=== PATIENT | female | born 1955 | race Caucasian/White ===

== ENCOUNTER → 2018-12-12 | Outpatient (CLI) | payer MEDICARE, OTHER ==
[~2018-12-12] MED LIST: ATOR10 PO; CALTRATE 600 +1 EACH PO; CALTRATE PO; Estring1 EACH VG; FISH1000 PO; Lisinopril2.5 MG; MECL25 PO; MULVITA PO; TRETINOIN TP
== END | disposition home or self-care (01) ==
LOC: LAB 11:21 → LAB SHORT 11:21
DX: R30.0 Dysuria (principal)
CPT/HCPCS: 87077; 87086; 87186

== ENCOUNTER 2019-06-25 22:49 | Inpatient (IN) | payer MEDICARE, OTHER ==
[~2019-06-25] VITALS: Ht 167.6 cm; Wt 88.4 kg
[2019-06-25 23:00] LABS: Calcium, Ionized (POC) 1.22 mmol/L (1.10-1.46); Chloride (POC) 103 mmol/L (98-108); Creatinine (POC) 1.1 mg/dL (0.6-1.0); Glucose (ISTAT POC) 226 mg/dL (70-99); Hemoglobin (POC) 12.6 g/dL (12.0-16.0); Potassium (POC) 2.9 mmol/L (3.5-5.5); Sodium (POC) 141 mmol/L (135-148); Total CO2 (POC) 22 mmol/L (21-32)
[2019-06-25 23:20] LABS: BASOPHILS ABSOLUTE AUTO 0.04 K/mm3 (0.00-0.23); BASOPHILS PERCENT AUTO 1 % (0-2); EOSINOPHILS PERCENT AUTO 4 % (0-6); Hematocrit 38.6 % (33.0-51.0); Hemoglobin 12.1 g/dL (11.5-16.0); IMMATURE GRAN ABSOLUTE AUTO 0.09 K/mm3 (0.00-0.10); IMMATURE GRAN PERCENT AUTO 1 % (0-1); LYMPHOCYTES PERCENT AUTO 61 % (21-46); MONOCYTES PERCENT AUTO 6 % (4-13); Mean Corpuscular HGB 29.6 pg (26.0-34.0); Mean Corpuscular HGB Conc 31.3 g/dL (31.5-36.5); Mean Corpuscular Volume 94 fL (80-100); Mean Platelet Volume 10.6 fL (9.1-12.4); NEUTROPHILS PERCENT AUTO 28 % (41-73); Platelet Count 223 K/mm3 (150-400); RDW Coefficient Variation 12.6 % (11.7-14.2); RDW Standard Deviation 43.2 fL (35.1-46.3); Red Blood Cell Count 4.09 M/mm3 (3.80-5.20); White Blood Cell Count 8.53 K/mm3 (4.00-11.30)
[2019-06-25] MEDS ORDERED: Ventolin/Prove6.7 GM INH (23:22)
[2019-06-25 23:24] LABS: Hematocrit 38.7 % (33.0-51.0); Hemoglobin 12.1 g/dL (11.5-16.0); Mean Corpuscular HGB 29.4 pg (26.0-34.0); Mean Corpuscular HGB Conc 31.3 g/dL (31.5-36.5); Mean Corpuscular Volume 94 fL (80-100); Mean Platelet Volume 10.7 fL (9.1-12.4); Platelet Count 229 K/mm3 (150-400); RDW Coefficient Variation 12.6 % (11.7-14.2); RDW Standard Deviation 43.4 fL (35.1-46.3); Red Blood Cell Count 4.11 M/mm3 (3.80-5.20); White Blood Cell Count 8.62 K/mm3 (4.00-11.30)
[2019-06-25 23:38] LABS: Anion Gap 13 mmol/L (6-16); Blood Urea Nitrogen 24 mg/dL (8-24); Bun/Creatinine Ratio 24.2 (12.0-20.0); CO2, Blood 21 mmol/L (21-32); Calcium, Blood 8.2 mg/dL (8.5-10.1); Chloride, Blood 107 mmol/L (98-108); Creatinine, Blood 0.99 mg/dL (0.40-1.00); Glomerular Filtration Rate 60 (60-); Glucose, Blood 212 mg/dL (70-99); Sodium, Blood 141 mmol/L (136-145); Troponin I <0.015 ng/mL (0.000-0.040)
[2019-06-25 23:44] LABS: Alanine Aminotransfer (ALT/SGP 157 U/L (12-78); Albumin/Globulin Ratio 0.8 (0.8-1.8); Alk Phos 150 U/L (50-136); Anion Gap 14 mmol/L (6-16); Aspartate Aminotrans (AST/SGOT 171 U/L (12-37); Bilirubin, Total 0.4 mg/dL (0.1-1.0); Blood Urea Nitrogen 23 mg/dL (8-24); Bun/Creatinine Ratio 22.8 (12.0-20.0); CHOL/HDL RATIO 3.7; CO2, Blood 20 mmol/L (21-32); Calcium, Blood 8.4 mg/dL (8.5-10.1); Chloride, Blood 107 mmol/L (98-108); Cholesterol 201 mg/dL (50-200); Creatinine, Blood 1.01 mg/dL (0.40-1.00); Globulin, Blood 3.6 g/dL (2.2-4.0); Glomerular Filtration Rate 58 (60-); Glucose, Blood 212 mg/dL (70-99); HDL Cholesterol 55 mg/dL (>39); LDL/HDL RATIO 2.2; Low Density Lipoprotein Chol 119 mg/dL (0-110); Sodium, Blood 141 mmol/L (136-145); Total Protein, Blood 6.6 g/dL (6.4-8.2); Triglycerides 136 mg/dL (30-160); Very Low Density Lipoprot Chol 27 mg/dL (6-32)
--- NOTE | 2019-06-26 01:20 | NUR ---
PT TO ICU 4 FROM TECHNICAL REP AT 0110. PT INTUBATED WITH VENT SETTINGS AC 16/450/5/45%. ETT 7.5, 23 AT TEETH. PT STARTED ON PROPOFOL 35 MCG/KG/MIN. BAG 1 OF 2 OF KCL INFUSING AND NS @ 200 ML/HR. PT OPENS EYES AND TURNS EYES TOWARD SOUND, FAILS TO FOLLOW COMMANDS. TYLER. PT PLACED IN RESTRAINTS TO PREVENT ACCIDENTAL SELF-EXTUBATION. TR BAND PLACED AT 0058 ON RIGHT RADIAL. 12 CC AIR. SMALL AMOUNT OF BLOOD NOTED. DISTAL PULSES/PALLOR WNL. CAP REFILL<3 SECONDS. PT ARRIVED HYPERTHERMIC WITH CORE TEMP OF 93.2, PT COVERED IN WARM BLANKETS. WILL CONTINUE TO MONITOR AND USE KAREN HUGGER NEEDED. TEMP STRAUSS PATENT AND DRAINING CLEAR YELLOW URINE. SEE FULL ADMISSION ASSESSMENT.
[2019-06-26 02:16] LABS: BASOPHILS ABSOLUTE AUTO 0.06 K/mm3 (0.00-0.23); BASOPHILS PERCENT AUTO 0 % (0-2); EOSINOPHILS ABSOLUTE AUTO 0.17 K/mm3 (0.00-0.68); EOSINOPHILS PERCENT AUTO 1 % (0-6); Hematocrit 39.4 % (33.0-51.0); Hemoglobin 12.4 g/dL (11.5-16.0); IMMATURE GRAN PERCENT AUTO 1 % (0-1); LYMPHOCYTES ABSOLUTE AUTO 2.31 K/mm3 (0.84-5.20); LYMPHOCYTES PERCENT AUTO 12 % (21-46); MONOCYTES PERCENT AUTO 5 % (4-13); Mean Corpuscular HGB 29.5 pg (26.0-34.0); Mean Corpuscular HGB Conc 31.5 g/dL (31.5-36.5); Mean Corpuscular Volume 94 fL (80-100); Mean Platelet Volume 10.5 fL (9.1-12.4); NEUTROPHILS ABSOLUTE AUTO 15.44 K/mm3 (1.96-9.15); NEUTROPHILS PERCENT AUTO 81 % (41-73); Platelet Count 224 K/mm3 (150-400); RDW Coefficient Variation 12.7 % (11.7-14.2); RDW Standard Deviation 43.8 fL (35.1-46.3); Red Blood Cell Count 4.21 M/mm3 (3.80-5.20); White Blood Cell Count 19.08 K/mm3 (4.00-11.30)
[2019-06-26 02:17] LABS: Bun/Creatinine Ratio 20.4 (12.0-20.0); Creatinine, Blood 1.03 mg/dL (0.40-1.00); Magnesium, Blood 1.7 mg/dL (1.6-2.4); Potassium, Blood 2.9 mmol/L (3.5-5.5); Troponin I 0.075 ng/mL (0.000-0.040)
[2019-06-26 02:19] LABS: PCO2 Arterial 38.9 mmHg (35-45); PO2 Arterial 84.1 mmHg (80-100); pH Blood Arterial 7.34 (7.35-7.45)
--- NOTE | 2019-06-26 02:45 | NUR ---
MANUAL PRESSURE HELD ON PT'S RIGHT RADIAL D/T REBLEED FROM RELEASING 2CC AIR FROM TR BAND. 2 CC AIR REINTRODUCED, ARMBOARD CHANGED. CAP REFILL, DISTAL PULSES/PALLOR WNL. WILL CONTINUE TO MONITOR. PHONE CALL FROM DR. ALEXANDER REGARDING PT'S LABS. ORDER FOR 2 GRAMS MAG REPLACEMENT WITH RECHECK OF MAG LEVELS 1 HOUR FOLLOWING IV INFUSION. CHECK K+ 1 HOUR FOLLOWING 40 MEQ KCL IV INFUSION. PER DR. ALEXANDER GOAL OF MAINTAINING K+ OF 4 AND MG OF 2.
--- NOTE | 2019-06-26 04:00 | NUR ---
PT HAVING SEIZURE WITH DECEREBRATE POSTURING. DR. ALEXANDER NOTIFIED. ORDER FOR 2 MG ATIVAN. PT STACKING BREATHS, ORDER TO TRY PS. VENT SETTINGS CHANGED TO PS 7, PEEP 5, FIO2 30%.
--- NOTE | 2019-06-26 05:00 | NUR ---
PT CONTINUES TO HAVE SEIZURE ACTIVITY. ORDER FOR STAT CT, PATRICIA GTT, VERSED GTT. ATIVAN 1-3 MG Q1 HR PRN.
--- NOTE | 2019-06-26 05:37 | NUR ---
PT TRANSPORTED TO CT. DURING CT PT VOMITED COPIOUS AMOUNTS OF GREEN WATERY BILE. PT HAD [address]
--- NOTE | 2019-06-26 06:07 | NUR ---
CALL TO DR. ALEXANDER. PT'S MORNING K+ 3.4. ORDER FOR 60 MEQ KCL. PT CONTINUES TO HAVE REGULAR SEIZURE ACTIVITY DESPITE ATIVAN, PROPOFOL, AND VERSED. PER DR. ALEXANDER INCREASE VERSED GTT NEEDED TO DECREASE SEIZURE ACTIVITY. VERSED INCREASED TO 6 MG/HR.
--- NOTE | 2019-06-26 06:48 | NUR ---
SHIFT SUMMARY PT REMAINS ON PS 7, PEEP 5, FIO2 30%. PROPOFOL GTT 45 MCG/KG/MIN, VERSED GTT 8 MG/HR, NS @ 200 ML/HR. PT CONTINUES TO HAVE SEIZURE ACTIVITY WITH INCREASE IN LACTIC ACID THIS AM. DR. ALEXANDER ORDERED ADDITIONAL KEPPRA GTT. EEG TO BE DONE THIS AM. 6 CC AIR REMAINS IN TR BAND. NO NEW OR WORSENING BLEED. SITE SOFT, NO SIGN OF HEMATOMA, CAP REFILL< 3 SECONDS, DISTAL PULSES/PALLOR WNL. PLEASE SEE PREVIOUS NOTES FROM THIS SHIFT. WILL REPORT TO DAYSHIFT NURSE
--- NOTE | 2019-06-26 08:00 | NUR ---
ASSUMPTION OF CARE ASSUMED CARE OF PT AT 0700. PT INTUBATED AND SEDATED, VENT SET TO PS 7/5, RR 25-26, 02 SATURATIONS 98%. MONITOR SHOWS SINUS TACH AT 105, BP STABLE. NO PLANTAR REFLEXES AT THIS TIME, SLIGHT DORSAL FLEXION IN ALL TOES. PROPOFL GOING AT 45 AND MIDAZOLAM AT 8, NOTICABLE SHAKING POSSIBLE SEIZURE LIKE ACTIVITY, MIDAZOLAM INCREASED TO 10. TEMPERATURE AT BEGINNING OF SHIFT 100.2, BLANKET REMOVED FROM PT, TEMPERATURE SLOWLY INCREASED TO CURRENT TEMP OF 100.8, SLIPPERS REMOVED. BEDSIDE ECHO COMPLETE.
[2019-06-26 08:41] LABS: Bicarbonate Venous 19.5 mmol/L (24.0-30.0); PCO2 Venous 46.2 mmHg (38-42); PO2 Venous 65.3 mmHg (38-42)
[2019-06-26 08:42] LABS: pH Blood Venous 7.27 (7.34-7.37)
--- NOTE | 2019-06-26 09:00 | NUR ---
DR WEINSTEIN TO ROOM, UPDATED ON PTS STATUS. EEG ORDERED, NS DC'D AND FAMILY UPDATED ON PLAN. FLUIDS PLACED ON TKO WITH POTASSIUM INFUSION AT THIS TIME.
[2019-06-26 09:34] LABS: International Normalized Ratio 1.08; Prothrombin Time Results 11.4 Sec (9.7-11.5)
--- NOTE | 2019-06-26 10:00 | NUR ---
AT BEDSIDE WHEN BP DECREASED. FIRST LOW READING AT 82/52 WITH SUBSEQUENT READING OF 78/51. DR WEINSTEIN UPDATED, 1L NS BOULUS ORDERED. PRESSORS TO BE CONSIDERED IF HYPOTENSION CONTINUES. PICC LINE RECOMMENDED AT THIS TIME. WILL DISCUSS WITH FAMILY FOR PICC LINE CONSENT.
--- NOTE | 2019-06-26 10:30 | NUR ---
PER MORNING REPORT FROM NIGHT, TR BAND TO R RADIAL WITH 6CC OF AIR REMAINING. 0830 PTT DECREASED FROM CRITICAL LEVEL, TR BAND DEFLATED AND REMOVED AT THIS TIME, OPSITE PLACED OVER INSERTION SITE. NO BLEEDING AT INSERTION SITE, SOME BRUISING NOTED. WRIST IMMOBILIZER IN PLACE.
--- NOTE | 2019-06-26 10:40 | NUR ---
PICC LINE DISCUSSION: THIS RN DISCUSSED THE NEED FOR A PICC LINE TO BE PLACE FOR POTENTIAL NEED FOR VASOPRESSORS AND IV INCOMPATIBILITIES. DISCUSSED WITH REYNA (), AND PT'S TWO DAUGHTERS. REYNA DECLINED FOR IT TO BE PLACED AT THIS TIME AND PT'S DAUGHTERS REPORT THEY WOULD "LIKE TO DISCUSS IT." AWAITING FINAL DECISION.
--- NOTE | 2019-06-26 12:00 | NUR ---
DR SALDAÑA TO PTS ROOM. UPDATED ON PTS STATUS, PT TO START ASPIRIN TODAY.
--- NOTE | 2019-06-26 15:36 | NUR ---
EEG TO ROOM AT 1400. DISCUSSED VERSED AND PROPOFOL GTT WITH JONATHAN AND DR WEINSTEIN. MEDICATIONS TO BE PLACED ON SB FOR TEST. VERSED PLACED ON SB AT 1430.
--- NOTE | 2019-06-26 16:08 | NUR ---
Provided calm presence and prayer to Phyllis's , Shanti, and their dtr. Shanti told me the story of what happened last night.I complimented him on his fast instincts and tremendous love. I listened to life review and provided prayer at bedside. Pt and spouse are deeply Christianity. Very appreciaitve of prayer and visits. Father Curtis will see pt and family tomorrow. I will remain available.
--- NOTE | 2019-06-26 17:57 | NUR ---
EEG COMPLETE AT 1700, PROPOFOL RESTARTED DURING PROCEDURE DUE TO SHAKING/SHIVERING MOVEMENTS, WARM BLANKETS PROVIDED. ATTEMPTED TO AROUSE PT PRIOR TO STARTING PROPOFOL, NO RESPONSE, PROPOFOL ON SB FOR A TOTAL OF 45 MINUTES. NO NOTICABLE SEIZURE ACTIVITY WHILE PROPOFOL AND VERSED ON SB, UPDATE DR WEINSTEIN, VERSED TO REMAIN ON SB UNTIL EEG RESULTS.
--- NOTE | 2019-06-26 18:30 | NUR ---
WASTED VERSED GTT (APPROX 240ml) IN Rx DESTROYER WITH DORIS SHINE RN.
--- NOTE | 2019-06-26 18:44 | NUR ---
SHIFT SUMMARY PT REMAINS INTUBATED, SEDATION PLACED ON SB, PT UNRESPONSIVE AT THIS TIME. VENT SET TO PS 7/5 FiO2 25%, 02 SATURATIONS STABLE T/O SHIFT ABOVE 95%. MONITOR SHOWS NSR WITH RATES 80'S-90'S. ECHO COMPLETED THIS AM. SHORT PERIOD OF HYPOTENSION EARLY IN SHIFT (SEE NURSING NOTE), PICC LINE PLACED, BP REMAINED STABLE FOR REMAINDER OF SHIFT. PTT DECREASED THIS SHIFT AND HEPARIN GTT STARTED AT 13u. EEG COMPLETE THIS SHIFT, REPORT FROM DR POON TO DR WEINSTEIN THAT EEG WAS NEGATIVE FOR SEIZURE ACTIVITY. DR WEINSTEIN ORDERED VERSED DC'D, PROPOFOL PLACED ON SB TO ASSESS NEURO ACTIVITY, MAY BE RESTARTED IF PT APPEARS UNCOMFORTABLE OR IS NOT TOLERATING THE VENT WELL, NURSE BHARGAVFITY ORDER PLACED. CRITICAL TROPONIN LAB @ 1827 OF 16.6, CALL PLACED TO DR MACEDO, NO CHANGE IN RHYTHM- PT REMAINS NSR AT 80-90BPM, BP STABLE WITH SYSTOLIC 110-120'S, ORDERS TO TREND TROPONINS Q8H X3 AND TO ADD ON CKMB AND TREND Q8H X3.
[2019-06-26 19:15] LABS: Creatine Kinase MB 100.3 ng/mL (0.0-3.6)
[2019-06-26 19:30] LABS: Creatine Kinase MB Index 6.6 (0.0-4.0)
[2019-06-26 21:28] LABS: Base Excess Venous -2.2 mmol/L; Bicarbonate Venous 22.7 mmol/L (24.0-30.0); PCO2 Venous 34.7 mmHg (38-42); pH Blood Venous 7.42 (7.34-7.37)
--- NOTE | 2019-06-26 21:29 | NUR ---
ASSUMED CARE OF PT, REPORT RCV'D FROM ISAC PATE. PT REMAINS INTUBATED PS 7, PEEP 5, FIO2 25%. SEDATION REMAINS ON STANDBY. PT HAS FACIAL GRIMACING WITH STERNAL RUN BUT FAILS TO FOLLOW COMMANDS OR OPEN HER EYES. PT TOLERATING VENT SETTINGS. PER PT'S FAMILY, D/T PT'S DECREASED RENAL FUNCTION PT HAS DIFFICULTY CLEARING SEDATION AND OTHER MEDICATIONS FROM HER BODY. PT'S FAMILY REPORTS THAT FOLLOWING PT'S HIP REPLACEMENT PT REQUIRED 5 ADDITIONAL DAYS HOSPITALIZED TO CLEAR SEDATION AND RETURN TO BASELINE. NO SEIZURE LIKE ACTIVITY NOTED. VHP @ 25 ML/HR, GOAL RATE 40 ML/HR WITH Q4 30 ML H20 FLUSH. NO RESIDUALS NOTED AT THIS TIME. TEMP STRAUSS PATENT AND DRAINING CLEAR YELLOW URINE. RIGHT RADIAL SITE SOFT, NO HEMATOMA NOTICED, SCANT AMOUNT OF BLOOD UNDER CLEAR DRESSING, NO EVIDENCE OF NEW OR WORSENING BLEED, DISTAL PULSES/PALLOR WNL, CAP REFILL<3 SECONDS. ARMBOARD REMAINS IN PLACE. SEE FULL SHIFT ASSESSMENT.
--- NOTE | 2019-06-27 00:31 | NUR ---
MIDSHIFT SUMMARY PT CONTINUES TO TOLERATE PS VENT SETTING. REMAINS OFF OF SEDATION AND APPEARS TO BE BECOMING MORE ALERT. PT MOVING HEAD BACK AND FORTH, MOVING ALL EXTREMETIES, AND ATTEMPTING TO OPEN EYES. PT STILL FAILS TO FOLLOW COMMANDS BUT APPEARED TO ON 2 OCCASIONS NOD HER HEAD "YES". PT FEBRILE WITH TMAX 101.1. COVERS REMOVED AND FAN BLOWING ON PT. HEPARIN GTT REMAINS AT 13 UNITS/HR. WILL CONTINUE TO MONITOR.
[2019-06-27 02:31] LABS: Creatine Kinase MB 79.9 ng/mL (0.0-3.6)
[2019-06-27 02:44] LABS: Creatine Kinase MB Index 4.1 (0.0-4.0)
[2019-06-27 03:13] LABS: BASOPHILS ABSOLUTE AUTO 0.05 K/mm3 (0.00-0.23); BASOPHILS PERCENT AUTO 0 % (0-2); EOSINOPHILS ABSOLUTE AUTO 0.13 K/mm3 (0.00-0.68); EOSINOPHILS PERCENT AUTO 1 % (0-6); Hematocrit 31.1 % (33.0-51.0); Hemoglobin 10.1 g/dL (11.5-16.0); IMMATURE GRAN ABSOLUTE AUTO 0.09 K/mm3 (0.00-0.10); IMMATURE GRAN PERCENT AUTO 1 % (0-1); LYMPHOCYTES ABSOLUTE AUTO 0.94 K/mm3 (0.84-5.20); LYMPHOCYTES PERCENT AUTO 5 % (21-46); MONOCYTES ABSOLUTE AUTO 1.14 K/mm3 (0.16-1.47); MONOCYTES PERCENT AUTO 6 % (4-13); Mean Corpuscular HGB 29.4 pg (26.0-34.0); Mean Corpuscular HGB Conc 32.5 g/dL (31.5-36.5); Mean Platelet Volume 10.3 fL (9.1-12.4); NEUTROPHILS ABSOLUTE AUTO 15.63 K/mm3 (1.96-9.15); NEUTROPHILS PERCENT AUTO 87 % (41-73); Platelet Count 160 K/mm3 (150-400); RDW Coefficient Variation 13.5 % (11.7-14.2); RDW Standard Deviation 44.8 fL (35.1-46.3); Red Blood Cell Count 3.44 M/mm3 (3.80-5.20); White Blood Cell Count 17.98 K/mm3 (4.00-11.30)
[2019-06-27 03:14] LABS: Mean Corpuscular Volume 90 fL (80-100)
[2019-06-27 03:35] LABS: Alanine Aminotransfer (ALT/SGP 116 U/L (12-78); Albumin, Blood 2.6 g/dL (3.4-5.0); Albumin/Globulin Ratio 0.8 (0.8-1.8); Alk Phos 97 U/L (50-136); Anion Gap 5 mmol/L (6-16); Aspartate Aminotrans (AST/SGOT 170 U/L (12-37); Bilirubin, Total 0.9 mg/dL (0.1-1.0); Blood Urea Nitrogen 15 mg/dL (8-24); Bun/Creatinine Ratio 15.9 (12.0-20.0); CO2, Blood 23 mmol/L (21-32); Chloride, Blood 113 mmol/L (98-108); Creatinine, Blood 0.94 mg/dL (0.40-1.00); Globulin, Blood 3.4 g/dL (2.2-4.0); Glomerular Filtration Rate >60 (60-); Glucose, Blood 108 mg/dL (70-99); Magnesium, Blood 2.2 mg/dL (1.6-2.4); Phosphorus, Blood 2.3 mg/dL (2.5-4.9); Potassium, Blood 3.9 mmol/L (3.5-5.5); Sodium, Blood 141 mmol/L (136-145)
--- NOTE | 2019-06-27 06:14 | NUR ---
SHIFT SUMMARY PT REMAINS ON PS 7, PEEP 5, FIO2 25%. PT TOLERATED PS T/O NIGHT WITHOUT REQUIRING SEDATION. PT MEDICATED TWICE WITH 25 MCG FENTANYL D/T INCREASED RESTLESSNESS WITH GOOD RESPONSE. PT OPENING EYES TO VERBAL STIMULI, NODDING HEAD YES/NO IN RESPONSE TO QUESTIONS AND WAS ABLE TO SQUEEZE HAND WHEN ASKED. PT HAS CRACKLES BILATERAL BASES WITH MODERATE AMOUNT OF THICK YELLOW SPUTUM SUCTIONED. PT FEBRILE WITH TMAX 101.1. PT TOLERATING TF WITH NO RESIDUALS AT 0000 AND 0400, INCREASED FEED RATE TO GOAL 40 ML/HR. HEPARIN REMAINS AT 13 UNITS/HR. SEE PREVIOUS SHIFT NOTES. WILL REPORT TO DAYSHIFT NURSE.
--- NOTE | 2019-06-27 08:29 | NUR ---
PT IS EXPERIENCING SOME SHORT PERIODS OF WAKEFULNESS BUT REMAINS DROWSY AND FOLLOWING OCC COMMAND BUT NOT CONSISTANT. PT WILL MAKE EYE CONTACT BUT FAMILY STATES PT HAS A HX OF SLOWLY AROUSING FROM ANESTHESIA AND PAIN MEDS. WHEN LEFT ALONE, PT WILL RETURN TO A CALM SLEEP WITH OCC SHORT PERIODS OF RESTLESSNESS AT THIS TIME AND WILL FOLLOW DURING THE DAY FOR POSSIBLE EXTUBATION. VENT PS 5 25% WITH NOTED TV AND RR. CURRENTLY DOWN TO JUST TKO NS. DF
[2019-06-27 10:08] LABS: Creatine Kinase MB 48.7 ng/mL (0.0-3.6)
[2019-06-27 10:20] LABS: Creatine Kinase MB Index 3.1 (0.0-4.0)
--- NOTE | 2019-06-27 10:21 | NUR ---
WITH RECENT ADL AND TURN, PT NOTED TO RIRI DOWN AND NOTED PAUSE SEE DOCUMENTATION. PT WAS ALSO AGGRESSIVELY PUSHING AGAINST THE ETT WITH HER TONGUE AND THEN RELAXED AND RETURN TO SLEEP. FAMILY WAS AT BEDSIDE AND COACHED TO REASONS FOR NO EXTUBATION AT THIS TIME.
--- NOTE | 2019-06-27 12:37 | NUR ---
PT CONT TO BE UNABLE TO PROTECT AIRWAY DUE TO SOMULENCT EPISODES ALTERNTING WITH ONLY SHORT RESTLESSNESS AND AGITATION PERIODS. PT IS TOLEATING PS 5 VERY WELL WITH MINUTE VENT OF 8-9 L, RR18-22, AND GOOD TV.
--- NOTE | 2019-06-27 15:20 | NUR ---
PT FAMILY REMIANS IN ROOM AND VISITING WITH FAMILY WHEN SHE AWAKES. VS RAMAIN STABLE, RESP STATUS STABLE, SOMULENCE ESSENTIALLY UNCHANGE, TEMP IS NOTED SL. ELEVATED AND WILL FOLLOW.
--- NOTE | 2019-06-27 18:15 | NUR ---
PT IS SLOWLY PROGRESSING TO BE MORE AWAKE WHEN SHE DOES AROUSE FROM SLEEP AND IS ABLE TO MAKE SL BETTER EYES CONTACT AND FOLLOW SOME COMMANDS COMPAIRED TO THIS AM. HOWEVER, PT WILL RETURN TO A SOMULENT STATE AND WHEN SHE DOES RESPOND SHE IS ONLY ABLE TO FOCUS FOR AT SHORT TIME BE FOR BECOMING DROWSY. PT IS PULLING AT RESTRAINTS AND REACHING FOR TUBE WHILE AGITATED WITH DAUGHTER REMAINING IN THE ROOM. VS, TEMP, RR, I/O, VENT SETTINGS NOTED. PT DOES NOT APPEAR ABLE AT THIS POINT TO PROTECT HER AIRWAY FOR A SUSTAINED PERIOD OF TIME.
[2019-06-27 18:45] LABS: Creatine Kinase MB Index 1.8 (0.0-4.0)
--- NOTE | 2019-06-27 20:30 | NUR ---
ASSUMED CARE OF PT, REPORT RCV'D FROM ISAC GEORGE. PT REMAINS INTUBATED ON PS 5, PEEP 5, FI02 25%. PT TOLERATING SETTINGS WELL AND REMAINS UNSEDATED. PT ALERT TO VERBAL STIMULI, ABLE TO TURN EYES TOWARD SOUND, NOD HEAD YES/NO IN RESPONSE TO QUESTIONS, AND ABLE TO FOLLOW COMMANDS. PT RECOGNIZES FAMILY AND IS VERBALLY REDIRECTABLE WHEN AGITATED. DISCUSSED WITH FAMILY MINIMIZING STIMULATION OVERNIGHT TO REDUCE NEED FOR SEDATING MEDICATIONS AND TO PROMOTE REST FOR PATIENT AND FAMILY. FAMILY AGREED AND RECOGNIZED THE NEED FOR SELF-CARE, WILL RETURN AT 0500. PT FEBRILE WITH TEMP 99.5, FAN BLOWING ON PT, COVERS REMOVED. WILL USE TYLENOL NEEDED. VSS. SEE FULL SHIFT ASSESSMENT.
--- NOTE | 2019-06-27 22:43 | NUR ---
PT RESTLESS AND ATTEMPTING TO PULL ETT. PT RESPONDS APPROPRIATELY TO QUESTIONS AND IS ABLE TO NOD HEAD YES/NO. PT DENIES PAIN AT THIS TIME.
--- NOTE | 2019-06-28 | NUR ---
MIDSHIFT ASSESSMENT PT REQUIRING HOURLY MEDICATION D/T INCREASED RESTLESSNESS AND AGITATION. PT ACTIVELY TRYING SIT UP AND IS ATTEMPTING TO GRAB ETT. PT REASSURED AND REORIENTED, EXPLAINED POSSIBLE CONSEQUENCES OF PULLING ETT. PT COOPERATIVE WITH CARE AND FOLLOWS DIRECTIONS. PT FEBRILE WITH TEMP OF 101.1, GIVEN 650 MG TYLENOL. WILL CONTINUE TO MONITOR.
[2019-06-28 04:32] LABS: BASOPHILS ABSOLUTE AUTO 0.05 K/mm3 (0.00-0.23); BASOPHILS PERCENT AUTO 0 % (0-2); EOSINOPHILS ABSOLUTE AUTO 0.42 K/mm3 (0.00-0.68); EOSINOPHILS PERCENT AUTO 3 % (0-6); Hematocrit 30.8 % (33.0-51.0); Hemoglobin 9.9 g/dL (11.5-16.0); IMMATURE GRAN ABSOLUTE AUTO 0.08 K/mm3 (0.00-0.10); IMMATURE GRAN PERCENT AUTO 1 % (0-1); LYMPHOCYTES ABSOLUTE AUTO 1.04 K/mm3 (0.84-5.20); LYMPHOCYTES PERCENT AUTO 7 % (21-46); MONOCYTES ABSOLUTE AUTO 0.94 K/mm3 (0.16-1.47); MONOCYTES PERCENT AUTO 7 % (4-13); Mean Corpuscular HGB 29.2 pg (26.0-34.0); Mean Corpuscular HGB Conc 32.1 g/dL (31.5-36.5); Mean Corpuscular Volume 91 fL (80-100); Mean Platelet Volume 10.3 fL (9.1-12.4); NEUTROPHILS ABSOLUTE AUTO 11.83 K/mm3 (1.96-9.15); NEUTROPHILS PERCENT AUTO 83 % (41-73); Platelet Count 161 K/mm3 (150-400); RDW Coefficient Variation 13.4 % (11.7-14.2); RDW Standard Deviation 44.3 fL (35.1-46.3); Red Blood Cell Count 3.39 M/mm3 (3.80-5.20); White Blood Cell Count 14.36 K/mm3 (4.00-11.30)
[2019-06-28 04:44] LABS: Anion Gap 8 mmol/L (6-16); Blood Urea Nitrogen 11 mg/dL (8-24); Bun/Creatinine Ratio 13.9 (12.0-20.0); CO2, Blood 24 mmol/L (21-32); Calcium, Blood 8.2 mg/dL (8.5-10.1); Chloride, Blood 110 mmol/L (98-108); Creatinine, Blood 0.79 mg/dL (0.40-1.00); Glomerular Filtration Rate >60 (60-); Glucose, Blood 114 mg/dL (70-99); Phosphorus, Blood 2.7 mg/dL (2.5-4.9); Potassium, Blood 3.6 mmol/L (3.5-5.5); Sodium, Blood 142 mmol/L (136-145)
--- NOTE | 2019-06-28 06:03 | NUR ---
SHIFT SUMMARY PT INCREASINGLY MORE ALERT AND COOPERATIVE WITH CARE. PT ANSWERING QUESTIONS WITH HEAD NODS AND MAKING NEEDS KNOWN. PT HAS GOOD STRONG COUGH AND IS COACHABLE WITH BREATHING, ABLE TO FOCUS AND REGULATE HER RESPIRATORY RATE AND BREATHING PATTERN. PT REGULARLY REQUIRED MEDICATION TO ASSIST IN VENT COMPLIANCE AND REDUCE ANXIETY. VENT SETTINGS REMAIN THE SAME. PT TOLERATING TF WITH LITTLE TO NO RESIDUALS. TEMP STRAUSS PATENT, 1900 YELLOW URINARY OUTPUT. PT TMAX 101.1, CURRENT TEMP 99.1 PLEASE SEE PREVIOUS NOTES FROM THIS SHIFT. WILL REPORT TO DAYSHIFT NURSE.
--- NOTE | 2019-06-28 06:29 | NUR ---
PT FAMILY AT BEDSIDE. PT COMMUNICATING BY WRITING QUESTIONS ON PAPER.
--- NOTE | 2019-06-28 08:08 | NUR ---
SHIFT ASSESSMENT PATIENT RESTING QUIETLY IN BED UPON ENTERING ROOM. PATIENT RESPONDS TO VERBAL STIMULI, FOLLOWS SIMPLE COMMANDS AND NODS AND SHAKES HEAD TO ANSWER SIMPLE YES AND NO QUESTIONS. PATIENT IS ANXIOUS AT TIMES. PATIENT WEAK BUT ABLE TO MOVE ALL EXTREMITIES. PATIENT SHAKES HEAD "NO" WHEN ASKED IF IN ANY PAIN. PATIENT HAS TMAX OF 99.9 DEGREES FAHRENHEIT. LUNGS CLEAR IN UPPER LOBES, DIMINISHED IN LOWER LOBES. PATIENT SATTING 90% AND GREATER ON SPONTANEOUS PRESSURE SUPPORT OF 5/5, 25% FIO2. SMALL AMOUNT OF THICK, PALE YELLOW SPUTUM BEING SUCTIONED FROM ETT. PATIENT IN SR, HR IN THE 90S. BP STABLE. SCDS IN PLACE. ABDOMEN SOFT, NONTENDER, MILDLY DISTENDED, WITH NORMOACTIVE BS. VHP INFUSING AT GOAL RATE OF 40 MLS/ HOUR WITH 30 ML WATER FLUSH Q4H. TEMP PROBE STRAUSS DRAINING CLEAR, YELLOW URINE. R RADIAL SIGN CARPENTER ACCESS SITE WNL- NO BLEEDING, BRUISING, OR HEMATOMA NOTED. NS INFUSING TKO. BED LOW, CALL LIGHT IN REACH. FAMILY IN AND OUT TO SEE PATIENT. WILL CONTINUE TO MONITOR FREQUENTLY THROUGHOUT SHIFT.
--- NOTE | 2019-06-28 09:37 | NUR ---
DR. WEINSTEIN IN ROOM TO SEE PATIENT. PATIENT ABLE TO FOLLOW DOCTORS COMMANDS. TF DISCONTINUED PER DOCTOR AND OG TUBE PLACED TO LOW INTERMITTENT SUCTION. DOCTOR PLANS TO EXTUBATE IN ABOUT HALF HOURS TIME. OUT TO WAITING ROOM TO SPEAK WITH PATIENT'S FAMILY.
--- NOTE | 2019-06-28 10:15 | NUR ---
PATIENT EXTUBATED AT 1005 AND PLACED ON 4 L NC. PATIENT TOLERATED WELL. PATIENT SATTING 90% AND GREATER. FAMILY AT BEDSIDE.
--- NOTE | 2019-06-28 12:15 | NUR ---
PATIENT RESTING QUIETLY UPON ENTERING ROOM. PATIENT ALERT AND ORIENTED X 4. PATIENT HAS RASPY VOICE SINCE EXTUBATION. CORE TEMP OF 99.5 DEGREES FAHRENHEIT. PATIENT SATTING 90% AND GREATER ON RA. PATIENT HAS DRY COUGH. PATIENT IN SR TO ST, HR 90S TO LOW 100S. BP STABLE. PATIENT PASSED SWALLOW EVAL. PATIENT PLACED ON CLEAR LIQUID DIET AND WILL ADVANCE TOLERATED. NO OTHER ACUTE CHANGES TO NOTE ON AT THIS TIME. PATIENT DENIES PAIN. FAMILY AT BEDSIDE.
--- NOTE | 2019-06-28 13:22 | NUR ---
Pt. is doing well and pastoral needs provided
--- NOTE | 2019-06-28 16:06 | NUR ---
PATIENT RESTING QUIETLY IN BED. TEMP OF 100.6 DEGREES FAHRENHEIT. PATIENT DENIES PAIN OR DISCOMFORT AT THIS TIME. PATIENT TOLERATED CLEAR LIQUID DIET WITH NO DIFFICULTY. INCREASED TO SOFT/ CARDIAC DIET. NO OTHER ACUTE CHANGES TO NOTE ON AT THIS TIME. FAMILY AT BEDSIDE. WILL CONTINUE TO MONITOR.
--- NOTE | 2019-06-28 17:41 | NUR ---
SHIFT SUMMARY PATIENT HAS REMAINED ALERT AND ORIENTED. PATIENT HAS HAD NO COMPLAINTS OF PAIN OR DISCOMFORT THIS SHIFT. PATIENT HAD TMAX OF 100.6 DEGREES FAHRENHEIT. PATIENT EXTUBATED THIS AM. PATIENT HAS BEEN SATTING 90% AND GREATER ON RA. PATIENT HAS HAD DRY COUGH. VOICE RASPY AFTER EXTUBATION. LUNGS HAVE BEEN CLEAR IN UPPER LOBES AND DIMINISHED IN LOWER LOBES. PATIENT HAS REMAINED IN SR TO ST, HR 90S TO LOW 100S. BP STABLE. PATIENT INCREASED TO SOFT DIET AND IS TOLERATING WELL. TEMP PROBE STRAUSS DRAINING ADEQUATE AMOUNT OF CLEAR, YELLOW URINE. R RADIAL SITE REMAINS WNL- NO BLEEDING, BRUISING, HEMATOMA NOTED THIS SHIFT. NS TKO. PATIENT RECEIVED 40 MEQ KCL ELIXIR THIS SHIFT. FAMILY HAS BEEN AT BEDSIDE MOST OF THE DAY. PATIENT HAS NO COMPLAINTS AT THIS TIME. BED LOW, CALL LIGHT IN REACH. WILL CONTINUE TO MONITOR FREQUENTLY UNTIL REPORT GIVEN TO ASSUMING NURSE.
--- NOTE | 2019-06-28 18:57 | NUR ---
PATIENT SUCCESSFULLY TRANSFERRED TO PCU, ROOM 15 WITH FAMILY AT BEDSIDE. NURSE ASSUMING CARE RECEIVED PATIENT.
--- NOTE | 2019-06-28 19:38 | NUR ---
TRANSFER NOTE RECEIVED REPROT FROM ISAC GARCIA IN ICU. PT TO ROOM VIA BED, 4 PERSON TRANSFER WITH SLIDER SHEET. PT AND FAMILY ORIENTED TO ROOM AND CALL LIGHT. EDUCATED ON FALL RISK AND TO CALL PRIOR TO GETTING OUT OF BED. PT A&Ox4, CALM AND COOPERTIAVE WITH CARE. PT UP TO BSC WITH 1-2 PERSON ASSIST. PT REPORTS SOB AND COUGHING, SMALL AMOUTN OF YELLOW SPUTUM NOTED. PT BREATHING EVEN AND UNLABORED. LS CLEAR UPPER LOBES, DIM BASES. PT DENIES PAIN AND NAUSEA. REPORTS THOART SORENESS, PER REPORT, PT WAS EXTUBATED DURING SHIFT. VSS. NO OTHER ACUTE CHANGES NOTED DURING SHIFT. REPORT GIVEN TO ONCOMING RN.
--- NOTE | 2019-06-28 20:45 | NUR ---
CARE ASSUMPTION PT A&O X4. VSS. PT'S VOICE RASPY/HOARSE POST EXTUBATION TODAY. PT RESTING IN BED, DENIES PAIN/NEEDS. WILL CONTINUE TO MONITOR AND PROVIDE CARE.
[2019-06-29 04:12] LABS: BASOPHILS ABSOLUTE AUTO 0.04 K/mm3 (0.00-0.23); BASOPHILS PERCENT AUTO 0 % (0-2); EOSINOPHILS ABSOLUTE AUTO 0.56 K/mm3 (0.00-0.68); EOSINOPHILS PERCENT AUTO 6 % (0-6); Hematocrit 29.9 % (33.0-51.0); Hemoglobin 9.6 g/dL (11.5-16.0); IMMATURE GRAN ABSOLUTE AUTO 0.06 K/mm3 (0.00-0.10); IMMATURE GRAN PERCENT AUTO 1 % (0-1); LYMPHOCYTES ABSOLUTE AUTO 1.26 K/mm3 (0.84-5.20); LYMPHOCYTES PERCENT AUTO 13 % (21-46); MONOCYTES ABSOLUTE AUTO 0.77 K/mm3 (0.16-1.47); MONOCYTES PERCENT AUTO 8 % (4-13); Mean Corpuscular HGB 29.5 pg (26.0-34.0); Mean Corpuscular HGB Conc 32.1 g/dL (31.5-36.5); Mean Corpuscular Volume 92 fL (80-100); Mean Platelet Volume 10.7 fL (9.1-12.4); NEUTROPHILS ABSOLUTE AUTO 7.35 K/mm3 (1.96-9.15); NEUTROPHILS PERCENT AUTO 73 % (41-73); Platelet Count 165 K/mm3 (150-400); RDW Standard Deviation 44.2 fL (35.1-46.3); Red Blood Cell Count 3.25 M/mm3 (3.80-5.20); White Blood Cell Count 10.04 K/mm3 (4.00-11.30)
[2019-06-29 04:29] LABS: Anion Gap 8 mmol/L (6-16); Blood Urea Nitrogen 9 mg/dL (8-24); Bun/Creatinine Ratio 11.4 (12.0-20.0); CO2, Blood 24 mmol/L (21-32); Calcium, Blood 8.8 mg/dL (8.5-10.1); Chloride, Blood 111 mmol/L (98-108); Creatinine, Blood 0.79 mg/dL (0.40-1.00); Glomerular Filtration Rate >60 (60-); Glucose, Blood 79 mg/dL (70-99); Magnesium, Blood 1.8 mg/dL (1.6-2.4); Potassium, Blood 3.6 mmol/L (3.5-5.5); Sodium, Blood 143 mmol/L (136-145)
--- NOTE | 2019-06-29 05:42 | NUR ---
SHIFT SUMMARY PT A&O X4. VSS. PT VOICE RASPY/HOARSE POST EXTUBATION. LUNG SOUNDS CLEAR, DIM IN BASES. SPO2 > 92% ON RA. MONITOR SHOWS NSR/ST, HR 80-110. PT AFEBRILE, DENIES PAIN/DISCOMFORT. PT SLEEPING HEAVILY THIS SHIFT. PT SBA TO BSC W/ EPISODES OF INCONTINENCE. PT STATES NOT REMEMBERING THE EVENTS LEADING TO HOSPITALIZATION, BUT IS ABLE TO RECALL THE EVENT IT HAS BEEN TOLD TO HER. PT TEARFUL THIS MORNING, STATING "I'M SO HUMILIATED" SHE WAS ASSISTED W/ SELF-CARE/ADL'S. TIME SPENT COMFORTING/ENCOURAGING PT. PT'S DAUGHTER IN TO SEE PT THIS AM WHILE PT SLEEPING W/ REPORT THAT SHE WILL RETURN LATER THIS AM. BED ALARM ON PT T/O NIGHT FOR PT SAFETY/FALL PRECAUTION W/ 2 PT ATTEMPTS OOB INDEPENDENTLY. PT ENCOURAGED TO CALL FOR ASSISTANCE PT CONTINUES TO BE WEAK AT THIS TIME. WILL CONTINUE TO MONITOR AND PROVIDE CARE UNTIL REPORT OFF TO DAY SHIFT RN.
--- NOTE | 2019-06-29 08:05 | NUR ---
NURSING PCU DAYSHIFT: Assumed care of pt at approx 0700. A/O, pleasant, cooperative w/care, tearful d/t current medical status. General weakness noted, able to transfer and ambulate w/one staff assist. C/O 09/08 midsternal chest discomfort r/t recent CPR which worsens w/deep inspiration, denies need for medication tx at this time. Skin is intact, recovered R radial site from recent angiogram, no bleed or hematoma noted. Tele in place, NSR w/PVC's, no c/o CP/pressure, SBP 120's prior to a.m. meds, no noted edema. L/S cta t/o, O2 sat mid 90's on RA, denies dyspnea, respirations shallow, harsh/productive cough, continuous bedside O2 monitoring. Abd SNT, BT+, voiding w/o difficulty though incontinence reported from NOC RN. PICC present in RUE, PG in LUE, s/l. No s/s of acute distress at this time. Spouse and daughter currently at bedside, discussed importance of deep breathing exercises for lung health and PNA prevention, verbalized and demonstrated understanding. Discussed possibility of ambulation today in halls w/assistance. Pt and family deny any current needs or questions regarding plan of care. Call light in reach, cont to monitor for any changes.
--- NOTE | 2019-06-29 13:21 | NUR ---
Pt. is in bed resting and talking with family members min the room on visit pt. is doing well offered prayers.
--- NOTE | 2019-06-29 13:22 | NUR ---
Pt. is din bed resting and talking with family members in the room on visit pt. reports doing fine offered prayers
--- NOTE | 2019-06-29 17:23 | NUR ---
NURSING PCU DAYSHIFT SUMMARY: No significant changes t/o the shift. Pt remains tearful at times though continues to engage and converse in a positive manner w/family and staff members. General weakness noted, able to ambulate w/SBA only. Walked approx 50ft into [place], ambulated slowly w/minimal exertion. Continues to c/o chest discomfort r/t CPR, treating well w/meds as ordered. No c/o CP/pressure, no rhythm changes noted, SBP 120-140's t/o shift. Respiratory status remains stable, pt continues to demonstrate deep breathing techniques, O2 sat mid to upper 90's on RA, no noted dyspnea. Seen by fashion stylist, plan of care discussed. Possible ICD placement Wednesday, plan to monitor in hospital as inpatent until anticipated procedure. Family at bedside t/o majority of shift. Updates provided, questions answered. Pt and family deny any current needs at this time, call light in reach, cont to monitor until rpt is given to NOC RN.
--- NOTE | 2019-06-30 05:02 | NUR ---
Patient A/0x4, calm and cooperative. VSS. Complaints of headache, medicated as ordered. Ambulating to bathroom with SBA. Telemetry: NSR. Rested comfortably throughout night.
--- NOTE | 2019-06-30 08:15 | NUR ---
REPORT REC'D FROM TIA CHAU. PT AWAKE, A&O, AMB IN HALLWAY WITH DAUGHTERS. FAMILY AT BEDSIDE. PT REMEMBERING EVENTS, REPORTS BRUISING AT CHEST DENIES NEED FOR PAIN MEDS AT THIS TIME. REPORTS RAISED RED ITCHY RASH LEFT HIP "PROBABLY DUE TO RUBBER MATTRESS" ALOE LOTION PROVIDED. AM MEDS GIVEN. VISITORS AT BEDSIDE. CALL LIGHT IN REACH. PT HAS STEADY GAIT BUT FEELS "EXHAUSTED" FROM WALK. WILL TREAT ACCORDING TO ORDERS, NURSE PROT, P&P. CALL LIGHT IN REACH. BELONGINGS IN REACH.
--- NOTE | 2019-06-30 18:23 | NUR ---
SHIFT SUMMARY PT HAD UNEVENTFUL DAY. AMBULATED HALLWAYS WITH STEADY GAIT. IMPROVED MENTAL STATUS. WISHES TO TAKE A SHOWER THIS EVENING. RESTED AND VISITED WITH MANY VISITORS T/O THE DAY. NO COMPLAINTS OR OTHER REQUESTS. WILL CONT TO MONITOR AND REPORT TO AVELINA RN. CALL LIGHT AND BELONGINGS IN REACH. FAMILY CURRENTLY AT BEDSIDE.
--- NOTE | 2019-07-01 07:07 | NUR ---
SHIFT SUMMARY PT SLEEPING IN ROOM COMFORTABLY AT THSI TIME. NO ACUTE CHANGES IN STATUS T/O NIGHT. TP SLPT WELL, AND WOKE EASILY TO VERBAL. RESP EVEN UNLABORED ON RA W/ SATS >95%. DENIED CP, DID REPORT SOME RIB PAIN AND WAS MEDCICATED PER EMAR FOR PAIN. PT HAD NO OTHER OTHER CHANGES T/O NIGHT. DENIED NEEDS. CALL LIGHT IN REACH.
--- NOTE | 2019-07-01 09:05 | NUR ---
pt sitting up in bed awake visiting with family, a/ox3, pleasant and cooperative with care, follows commands well, denies any complaints of pain, sob or dizziness, lungs are clear t/o, resp even and unlabored, is on r/a, reports an occ prod cough of lightly bloody sputum, hrr, tele in place running st per monitor, see strip, no edema noted, ppp+2, cap refill <3sec, vs stable, afebrile, iv site is piccl line to khai site is clear and patent, power glide to merle site is clear and patent, btx4, abd flat soft nontender, voids without diff, skin has some bruising to chest, maew, giorgio, call light in reach.
--- NOTE | 2019-07-01 12:40 | NUR ---
pt laying in bed visiting with family, went down for cxray via wheelchair, had a shower this am with spouces assist. denies any complaints this afernoon. call light in reach.
[2019-07-01 12:59] LABS: BASOPHILS ABSOLUTE AUTO 0.05 K/mm3 (0.00-0.23); BASOPHILS PERCENT AUTO 1 % (0-2); EOSINOPHILS ABSOLUTE AUTO 0.66 K/mm3 (0.00-0.68); EOSINOPHILS PERCENT AUTO 7 % (0-6); Hematocrit 32.8 % (33.0-51.0); Hemoglobin 10.6 g/dL (11.5-16.0); IMMATURE GRAN ABSOLUTE AUTO 0.29 K/mm3 (0.00-0.10); IMMATURE GRAN PERCENT AUTO 3 % (0-1); LYMPHOCYTES ABSOLUTE AUTO 1.38 K/mm3 (0.84-5.20); LYMPHOCYTES PERCENT AUTO 14 % (21-46); MONOCYTES PERCENT AUTO 10 % (4-13); Mean Corpuscular HGB 29.2 pg (26.0-34.0); Mean Corpuscular HGB Conc 32.3 g/dL (31.5-36.5); Mean Corpuscular Volume 90 fL (80-100); Mean Platelet Volume 10.1 fL (9.1-12.4); NEUTROPHILS ABSOLUTE AUTO 6.35 K/mm3 (1.96-9.15); NEUTROPHILS PERCENT AUTO 65 % (41-73); Platelet Count 253 K/mm3 (150-400); RDW Coefficient Variation 12.7 % (11.7-14.2); RDW Standard Deviation 42.3 fL (35.1-46.3); Red Blood Cell Count 3.63 M/mm3 (3.80-5.20); White Blood Cell Count 9.73 K/mm3 (4.00-11.30)
[2019-07-01 13:04] LABS: Anion Gap 7 mmol/L (6-16); Blood Urea Nitrogen 15 mg/dL (8-24); Bun/Creatinine Ratio 16.3 (12.0-20.0); CO2, Blood 25 mmol/L (21-32); Calcium, Blood 9.2 mg/dL (8.5-10.1); Chloride, Blood 107 mmol/L (98-108); Creatinine, Blood 0.92 mg/dL (0.40-1.00); Glomerular Filtration Rate >60 (60-); Glucose, Blood 95 mg/dL (70-99); Potassium, Blood 4.3 mmol/L (3.5-5.5); Sodium, Blood 139 mmol/L (136-145)
--- NOTE | 2019-07-01 19:47 | NUR ---
Shift Summary Recieved report from day RN at approx 1500. Pt in room with family, visiting this shift. Pt denies needs, denies pain. pt c/o cough, pt reports to this RN that MD is aware of cough and that she had a CXR this AM. Pt is alert and oriented, breathing easy and unlabored at rest, pulse o2 on per orders and o2 is stable at >92%. Pt denies chest pain or pressure, complains of mild rib discomfort with cough that has been unchanged since hospital stay. Pt uses call light appropriately to make needs known. Hand off given to NOC RN who assumes care.
--- NOTE | 2019-07-02 05:59 | NUR ---
SHIFT SUMMARY PT HAS REMAINED AOX4 THROUGHOUT THE NIGHT. VSS. PLEASANT AND COOPERATIVE WITH CARE. PT CONTINUES TO AMBULATE WITH STANDBY ASSIST IN ROOM WITHOUT DIFFICULTY. NO ACUTE EVENTS ON TELEMETRY THROUGHOUT THE NIGHT. PT REPORTING SOME DISCOMFORT TO CHEST FROM CPR PERFORMED EARLIER THIS WEEK, DECREASED WITH ORDERED MEDICATION. PT WITH MILD, DRY COUGH THAT HAS DECREASED SLIGHTLY THROUHGOUT THE NIGHT, BUT IS STILL PRESENT. NO OTHER CHANGES NOTED FROM INITIAL ASSESSMENT. WILL CONTINUE TO MONITOR AND REPORT TO ONCOMING SHIFT RN. BED IN LOW POSITION, CALL LIGHT IN REACH.
--- NOTE | 2019-07-02 18:24 | NUR ---
SHIFT SUMMARY PT ALERT AND ORIENTED. VS STABLE. 02 SATS REMAIN ABOVE 90% ON RA. HR NSR. PT DENIES ANY CP/PRESSURE. PT INDEPENDENT IN ROOM. PT COMPLAINS OF COUGH AND NEW ORDERS HAVE BEEN PLACED TO HELP WITH COUGH. WILL CONTINUE TO MONITOR AND REPORT TO ONCOMING RN. CALL LIGHT IN REACH.
--- NOTE | 2019-07-03 06:28 | NUR ---
npo waiting placement of pacer in am, call light in reach, rm air, a+o, easily roused, premission sheet placed on chart with pt stickers, will continue to monitor and treat until share bsr with day staff and pt
--- NOTE | 2019-07-03 07:40 | NUR ---
PT TAKEN TO CORPORATE EXECUTIVE FOR AICD PLACEMENT.
--- NOTE | 2019-07-03 09:45 | NUR ---
PT RETURNED FROM [facility]ST TAILOR. VS STABLE. PT ALERT AND ORIENTED. PT DENIES PAIN AT THIS TIME. WOUND TO LEFT CHEST WALL WITH GAUZE DRESSING IS C/D/I. SLIGHT SWELLING NOTED. PT PROVIDED POST AICD PLACEMENT PACKET PROVIDED. SLING TO LEFT ARM. PT EDUCATED ON ACTIVITY RESTRICTIONS. WILL CONTINUE TO MONITOR CLOSELY.
--- NOTE | 2019-07-03 17:53 | NUR ---
SHIFT SUMMARY PT ALERT AND ORIENTED. VS STABLE. HR NSR. BP STABLE. WOUND TO LEFT CHEST WALL IS C/D/I WITH GAUZE DRESSING. PT MEDICATED FOR PAIN PER EMAR. PT STILL COMPLAINS OF DRY COUGH. WILL CONTINUE TO MONITOR AND REPORT TO ONCOMING RN. CALL LIGHT IN REACH.
--- NOTE | 2019-07-04 06:52 | NUR ---
taken down to xray this am, pulled picc line last night per orders, stated when woke up for procedure that she had sletp more than previous night, call light in reach, abx infused with no s/sx of infiltration or infection, eager for dc today, will continue to monitor and treat until share bsr with staff and pt
[2019-07-04] MEDS ORDERED: ASPI81CH PO (08:45)
[2019-07-04] MEDS ORDERED: CLOP75 PO (08:45)
[2019-07-04] MEDS ORDERED: METO50ER PO (08:46)
--- NOTE | 2019-07-04 09:30 | NUR ---
DISCHARGE NOTE ASSUMED CARE THIS AM. PT ALERT AND ORIENTED. VS STABLE. WOUND TO L CHEST WALL C/D/I. NO SWELLING NOTED OR BLEEDING. DR. CROSS IN EARLY THIS AM WITH DISCHARGE ORDERS. DISCHARGE INSTRUCTIONS PROVIDED. POWERGLIDE REMOVED. NEW MEDICATIONS EDUCATED TO PT. ALL QUESTIONS ANSWERED. PT TAKEN OUT BY WHEELCHAIR.
== END 2019-07-04 09:51 | disposition home or self-care (01) | DRG 224 ==
LOC: ER 22:49 → ICUW 23:08 → ICUE 23:08 → PCU 06-28 18:51
PROVIDERS: Emergency Medicine; Internal Medicine Critical Care Medicine; Internal Medicine Interventional Cardiology; Internal Medicine Pulmonary Disease; Physician Assistant; ADMIT Internal Medicine Cardiovascular Disease
PROC: 5A1945Z Respiratory Ventilation, 24-96 Consecutive Hours (ICD-10-PCS; 2019-06-25)
PROC: 0BH17EZ Insertion of Endotracheal Airway into Trachea, Via Natural or Artificial Opening (ICD-10-PCS; 2019-06-25)
PROC: 4A023N7 Measurement of Cardiac Sampling and Pressure, Left Heart, Percutaneous Approach (ICD-10-PCS; 2019-06-26)
PROC: B210YZZ Fluoroscopy of Single Coronary Artery using Other Contrast (ICD-10-PCS; 2019-06-26)
PROC: 0JH608Z Insertion of Defibrillator Generator into Chest Subcutaneous Tissue and Fascia, Open Approach (ICD-10-PCS; principal; 2019-07-03)
PROC: 0JH60FZ Insertion of Subcutaneous Defibrillator Lead into Chest Subcutaneous Tissue and Fascia, Open Approach (ICD-10-PCS; 2019-07-03)
DX: I49.01 Ventricular fibrillation (principal); I21.19 ST elevation (STEMI) myocardial infarction involving other coronary artery of inferior wall; I50.20 Unspecified systolic (congestive) heart failure; I46.9 Cardiac arrest, cause unspecified; K21.9 Gastro-esophageal reflux disease without esophagitis; E78.5 Hyperlipidemia, unspecified; I11.0 Hypertensive heart disease with heart failure; E87.6 Hypokalemia
CPT/HCPCS: 31500; 31720; 33249; 36600; 51702; 70450; 71045; 71046; 76937; 80047; 80048; 80053; 80061; 82550; 82553; 82803; 82947; 83605; 83735; 84100; 84132; 84484; 85014; 85025; 85027; 85347; 85610; 85730; 86850; 86900; 86901; 92920; 93005; 93010; 93306; 93308; 93321; 93458; 94002; 94003; 95819; 96374-59; 97110; 97116; 97162; 97165; 97530; 97535; 99152; 99153; 99291-25; C1722; C1725; C1751; C1769; C1887; C1894; C1895; C9113; J0153; J0282; J0330; J0461; J0690; J1644; J1953; J2060; J2250; J2704; J3010; J3475; J3480; J7030; J7040; J7050; J7060; Q0177; Q9967

== ENCOUNTER → 2022-06-05 | Outpatient (CLI) | payer MEDICARE, OTHER ==
[~2022-06-05] MED LIST changes: +ASPI81CH PO; +CLOP75 PO; +METO50ER PO; +Ventolin/Prove6.7 GM INH
== END | disposition home or self-care (01) ==
LOC: LAB SHORT 16:24 → LAB 16:24
DX: N39.0 Urinary tract infection, site not specified (principal)
CPT/HCPCS: 87077; 87086; 87186

== ENCOUNTER 2024-05-24 08:59 | Day surgery (SDC) | payer MEDICARE, OTHER ==
[2024-05-24] VITALS (9 sets, daily range): BP systolic 96–133; BP diastolic 62–85
[~2024-05-24] VITALS: Ht 165.1 cm; Wt 84.4 kg
[~2024-05-24 08:59] MED LIST changes: +FAMO40 PO; +MAGCIT300 PO
[2024-05-24] MEDS ORDERED: NS 2,000 ML IV ONE (11:03)
[2024-05-24] MEDS ORDERED: Nitroglycerin 2 MG/20 ML BTL ONE (11:03)
[2024-05-24] MEDS ORDERED: Heparin Sodium 1000 Units/ML 10ML MDV ONE (11:03)
[2024-05-24] MEDS ORDERED: NiCARdipine HCL 1,000 MCG/5 ML SYR ONE (11:03)
[2024-05-24] MEDS ORDERED: NS 250 ML IV ONE (11:03)
[2024-05-24] MEDS ORDERED: FentaNYL Citrate 50 MCG/ML 2 ML Injection ONE (11:08)
[2024-05-24] MEDS ORDERED: Midazolam HCl 1MG / ML 2ML Vial ONE (11:08)
--- NOTE | 2024-05-24 12:08 | NUR ---
PT BACK TO RECOVERY ROOM. PT SPOUSE AT BEDSIDE. DR SANTAMARIA IN TO UPDATE PT AND SPOUSE ON PROCEDURE.
--- NOTE | 2024-05-24 12:28 | NUR ---
1 CC AIR REMOVED FROM TR BAND TO R WRIST BECAUSE OF C/O NUMBNESS/TINGLING. PT HAS GOOD CAP REFILL.
--- NOTE | 2024-05-24 12:59 | NUR ---
CARE ASSUMED OF PATIENT. PT EATING LUNCH, ALPHONSO WELL. RIGHT TR BAND IN PLACE. TISSUE SURROUNDING CUFF SOFT. CIRC CHECK WNL. 3 CC REMOVED FROM BALLOON AT 1300.
--- NOTE | 2024-05-24 13:32 | NUR ---
TR BAND BALLOON COMPLETELY DEFLATED AT 1330. WRIST TISSUE SOFT. NO BLEEDING, SWELLING, HEMATOMA, OR PAIN TO AREA. PT DENIES NUMBNESS TO HAND/FINGERS.
--- NOTE | 2024-05-24 14:41 | NUR ---
PT OUT OF CHAIR TO RESTROOM, ABLE TO VOID. VERBAL AND WRITTEN DISCHARGE INSTRUCTIONS GIVEN TO PATIENT AND FAMILY WITH CLEAR UNDERSTANDING. PT HAS FOLLOW UP APPOINTMENT MADE WITH [facility] WITHIN THIS MONTH. NO CHANGES MADE TO MEDICATIONS. VSS. RIGHT RADIAL SITE STABLE W/O BLEEDING, SWELLING, HEMATOMA, OR TENDERNESS, CIRC CHECK WNL. TR BAND REMOVED AT 1430. DRSG PLACED, WRIST IMMOBILIZER IN PLACE. PT DC'D HOME IN STABLE CONDITION AT 1435. PT ESCORTED OUT VIA W/C TO CARE OF .
== END 2024-05-24 14:57 | disposition home or self-care (01) ==
LOC: MHTC 08:59
DX: I25.118 Atherosclerotic heart disease of native coronary artery with other forms of angina pectoris (principal); I13.0 Hypertensive heart and chronic kidney disease with heart failure and stage 1 through stage 4 chronic kidney disease, or unspecified chronic kidney disease; I50.23 Acute on chronic systolic (congestive) heart failure; N18.9 Chronic kidney disease, unspecified; I49.3 Ventricular premature depolarization; E78.5 Hyperlipidemia, unspecified; Z95.810 Presence of automatic (implantable) cardiac defibrillator; K21.9 Gastro-esophageal reflux disease without esophagitis; G47.33 Obstructive sleep apnea (adult) (pediatric); Z88.2 Allergy status to sulfonamides
CPT/HCPCS: 76937; 93454; 99152; 99153; A9270; C1769; C1894; J1644; J2250; J3010; J7030; J7050; Q9967